=== PATIENT | female | born 1985 | race Caucasian/White ===

== ENCOUNTER 2024-09-29 19:09 | Emergency (ER) | payer OTHER, SELFPAY ==
[2024-09-29 19:30] VITALS: BP 154/90; PULSE 90; RESP 15; TEMP 36.2; O2SAT 100
--- NOTE | 2024-09-29 19:48 | ED.URI ---
HPI - URI/Sore Throat General Chief Complaint: Upper Respiratory Infection Stated Complaint: bodyaches,clogged/ringing ears,FRANKEL Time Seen by Provider: 09/29/24 19:49 Source: patient, RN notes reviewed and old records reviewed Mode of arrival: ambulatory Limitations: no limitations History of Present Illness HPI Narrative: Patient presents with 1 day of body aches, ear discomfort, headaches. She has not been taking anything for her symptoms Related Data Allergies Allergy/AdvReac Type Severity Reaction Status Date / Time povidone-iodine (From Allergy Severe Swelling Verified 09/29/24 19:38 Betadine) Review of Systems Review of Systems: All systems reviewed & are unremarkable except as noted in HPI and below Constitutional: Constitutional: Reports as per HPI, Reports no additional constitutional complaints, Reports body ache(s), Reports headache(s) and Reports lethargy ENT: Reports system reviewed and no additional complaints, except as documented and Reports otalgia Cardiovascular: Cardiovascular: Reports no additional cardiovascular complaints Respiratory: Respiratory: Reports no additional respiratory complaints Gastrointestinal: Gastrointestinal: Reports no additional gastrointestinal complaints PMFSH Comments At the time of my signature, I reviewed and agree with the nursing past medical, surgical, social, and family history. There is no relevant family history pertinent to the patient complaint. Exam Const: General: cooperative, no acute distress, alert and awake Orientation/consciousness: oriented to person, oriented to place and oriented to time HENMT: Head: normal to inspection Ears: TM's normal bilaterally Mouth: Yes moist mucous membranes Resp: Effort & Inspection: normal respiratory effort and able to speak in complete sentences Auscultation: clear to auscultation bilaterally, no crackles, no rales, no rhonchi and no wheezes Cardio: Palpation: normal PMI Rate: regular rate Rhythm: regular rhythm Heart sounds: S1 normal heart sound present and S2 normal heart sound present Neuro: General: oriented to person, oriented to place and oriented to time Cranial nerves: Yes CN's II-XII intact bilaterally Psych: Appearance: grossly normal Thought process: Normal thought process present Insight: Good insight present (Psych) Judgement: Good judgement present (Psych) Course Course Level of Care: Express Care Visit Vital Signs Vital signs: Vital Signs Temperature 97.1 F L 09/29/24 19:30 Pulse Rate 90 09/29/24 19:30 Respiratory Rate 15 09/29/24 19:30 Blood Pressure 154/90 H 09/29/24 19:30 Pulse Oximetry 100 09/29/24 19:30 Oxygen Delivery Room Air 09/29/24 19:30 Temperature 97.1 F L 09/29/24 19:30 Pulse Rate 90 09/29/24 19:30 Respiratory Rate 15 09/29/24 19:30 Blood Pressure 154/90 H 09/29/24 19:30 Pulse Oximetry 100 09/29/24 19:30 Oxygen Delivery Room Air 09/29/24 19:30 Reviewed MDM - URI/Sore Throat MDM Narrative Medical decision making narrative: Negative COVID, negative flu, negative strep, culture pending. Supportive care measures discussed with patient. She is nontoxic appearing, stable for discharge home. Discharge instructions reviewed with patient, as well as provided in writing per nursing staff. The instructions also include specific and strict return/GO TO THE ER as well as f/u information. All questions have been answered, and the patient deny any further questions with discharge and discharge plan. Some parts of this dictation were generated by voice recognition software and may contain typographical and/or grammatical inaccuracies. Differential Diagnosis Differential diagnosis: Likely upper respiratory infection, otitis media, viral infection, influenza and pharyngitis Medical Records Attestation: I reviewed the patient's medical records. Lab Data Attestation: I reviewed the patient's lab results. Labs: Lab Results 09/29/24 09/29/24 Range/Units 20:00 20:03 POC Influenza A Ag Negative Negative (Negative) POC Influenza B Ag Negative Negative (Negative) POC SARS CoV-2 Ag Negative Negative (Negative) POC Grp A Strep Screen Negative Negative (Negative) Discharge Plan Discharge Clinical Impression: Viral infection Patient Disposition: Home, Self-Care Condition: Stable Instructions: Antibiotic Form, Viral Syndrome (ED) Additional Instructions: Take medication as prescribed. Follow with primary care provider. Emergency department for new or worse symptoms Patient Language: Ecuad[place] Follow-up/Referrals: PHYSICIAN,PROCUREMENT ASSISTANT [Primary Care Provider] - Stand Alone Forms: Work/School Release IP Time of Disposition: 19:55
[2024-09-29 20:05] LABS: EDCOVIDSCREEN Negative (Negative); EDINFLUASCREEN Negative (Negative); EDINFLUBSCREEN Negative (Negative); EDSTREPNEGPOS1 Negative (Negative)
[2024-09-29 20:05] LABS: EDCOVIDSCREEN Negative (Negative); EDINFLUASCREEN Negative (Negative); EDINFLUBSCREEN Negative (Negative); EDSTREPNEGPOS1 Negative (Negative)
== END 2024-09-29 20:00 | disposition home or self-care (01) ==
PROVIDERS: Emergency Provider Nurse Practitioner Family
DX: B34.9 Viral infection, unspecified (principal); Z20.822 Contact with and (suspected) exposure to COVID-19
CPT/HCPCS: 87081; 87426; 87804; 87880; 99203; G0463